=== PATIENT | male | born 1945 | race Caucasian/White ===

== ENCOUNTER 2024-04-25 20:53 | Emergency (ER) | payer MEDICARE, SELFPAY ==
[2024-04-25 20:58] VITALS: BP 138/62; PULSE 77; RESP 18; TEMP 38; O2SAT 98; BMI 25.7
[2024-04-25 21:06] VITALS: TEMP 38
[2024-04-25] MEDS: ACETAMINOPHEN 325 MG TABLET 975 MG PO (21:06)
--- NOTE | 2024-04-25 22:00 | PC.NURSE ---
Pt took at home COVID test today and it was positive. Only symptoms all day have been sore throat, some bodyaches, and fever.
[2024-04-25 23:06] VITALS: TEMP 36.9
--- NOTE | 2024-04-25 23:09 | ED_ITS ---
HPI - URI/Sore Throat General Chief Complaint: Upper Respiratory Symptoms Stated Complaint: covid + Time Seen by Provider: 04/25/24 21:42 Source: patient and family Mode of arrival: Ambulatory Limitations: no limitations History of Present Illness HPI Narrative: 78-year-old male who takes quetiapine for insomnia nightly, no other reported medical issues. Patient had a home test that was positive for COVID today. He started having some fevers, congestion, chills and fatigue. He denies any chest pain or shortness of breath. He has had a little bit of mild cough. No nausea or vomiting, no diarrhea constipation, no urinary symptoms. No swelling in extremities. Quetiapine as his only daily medication. Patient denies any recent surgeries. No known drug allergies. No tobacco, no regular alcohol or recreational drugs. He is accompanied by his family including his daughter and grandson. Related Data Allergies Allergy/AdvReac Type Severity Reaction Status Date / Time No Known Drug Allergies Allergy Verified 04/25/24 20:58 Review of Systems Review of Systems ROS Unobtainable: All systems reviewed & are unremarkable except as noted in HPI and below Patient History Social History Smoking Status: Never smoker Smoking Status: Never smoker Substance Use Type: does not use Exam Narrative Exam Narrative: GENERAL: Alert and oriented x three, well-appearing elderly male in mild distress. HEENT: Head normocephalic, atraumatic, EOMI, pupils reactive, face symmetric, moist mucous membranes NECK: Supple, full range of motion CARDIOVASCULAR: Regular rate and rhythm without murmurs, rubs or gallops. No JVD. No edema bilateral lower extremities. RESPIRATORY: Breath sounds equal bilaterally, no wheezes rales or rhonchi. No tachypnea or accessory muscle use. ABDOMEN: Soft, nontender. Normoactive bowel sounds all 4 quadrants. No guarding or rebound, rigidity, no mass : No CVA tenderness EXTREMITIES: Normal range of motion, no clubbing or edema. Neurovascularly intact NEUROLOGICAL: Cranial nerves II through XII grossly intact. Moving all extremities SKIN: Warm, dry, no petechiae, no rashes or lesions. Initial Vital Signs Initial Vital Signs: Vital Signs Temperature 100.4 F H 04/25/24 20:58 Pulse Rate 77 04/25/24 20:58 Respiratory Rate 18 05/25/24 20:58 Blood Pressure 138/62 04/25/24 20:58 Pulse Oximetry 98 04/25/24 20:58 Oxygen Delivery Method Room Air 04/25/24 20:58 Course Orders Ordered: Discontinued Medications Acetaminophen (Acetaminophen 325 Mg Tablet) 975 mg PO NOW ONE Stop: 04/25/24 21:04 Last Admin: 04/25/24 21:06 Dose: 975 mg Documented By: DELIA Vital Signs Vital signs: Vital Signs - 8 hr 04/25/24 23:06 04/25/24 23:39 Temperature 98.4 F Pulse Rate 66 Respiratory Rate 14 Blood Pressure 107/57 L Pulse Oximetry 95 Oxygen Delivery Method Room Air MDM - URI/Sore Throat MDM Narrative Medical decision making narrative: This is a 78-year-old male who had home positive COVID test with symptoms consistent. He was febrile initially upon arrival responded well to Tylenol otherwise appears well. Patient is requesting prescription for Paxlovid, we discussed risks versus benefits overall it has not highly recommended. He does not have significant risk factors other than age. He does not have any specific contraindications. He is within the window for the prescription. Did discuss patient require a positive COVID test and labs for prescription. After discussion between patient and his family he elects to not start Paxlovid. Discharge Plan Departure Patient Disposition: Home Clinical Impression: COVID-19 virus infection Instructions: DI for COVID-19 (Suspected or Confirmed ) Activity Restrictions/Additional Instructions: *You have been diagnosed with COVID infection You can take Tylenol up to a 1000 mg every 6 hours and/or ibuprofen up to 600 mg every 6 hours for fevers or body aches. *What to do: * per recommendations from the CDC and the [facility] Department of Health * stay home except to get medical care. Restrict activities outside your home, except for getting medical care. Do not go to work, school, or public areas. Avoid using public transportation, ride sharing, or taxis. * separate yourself from other people in your home. * call ahead before visiting your doctor * Wear a face mask * Cover your coughs and sneezes * Clean your hands often * Avoid sharing household items * Clean all high-touch services every day * Monitor your symptoms and seek prompt medical attention if your illness is worsening, particularly with difficulty in breathing. Stand Alone Forms: Patient Portal/API
[2024-04-25 23:39] VITALS: BP 107/57; PULSE 66; RESP 14; O2SAT 95
== END 2024-04-25 23:40 | disposition home or self-care (01) ==
PROVIDERS: Emergency Provider Emergency Medicine
DX: U07.1 COVID-19 (principal)
CPT/HCPCS: 99283